=== PATIENT | male | born 1975 | race American Indian/Alaskan Native ===

== ENCOUNTER 2017-04-16 12:40 | Emergency (ER) | payer OTHER ==
--- NOTE | 2017-04-16 14:21 | Cat Scan Report ---
FINAL REPORT EXAM: CT HEAD/BRAIN WO CON HISTORY: fall down stairs,dizziness TECHNIQUE: CT head without contrast PRIORS: None. FINDINGS: No acute intra-axial or extra-axial hemorrhage is identified. There is no evidence of midline shift or mass effect. The ventricles and sulci are within normal limits. Ruiz-white matter differentiation is intact. No acute parenchymal abnormalities seen. Bony calvarium is grossly intact. Visualized portions of the mastoids and paranasal sinuses are unremarkable. IMPRESSION: Negative CT head
--- NOTE | 2017-04-16 14:36 | Cat Scan Report ---
FINAL REPORT EXAM: CT LUMBAR SPINE WO CON HISTORY: fall down stairs,dizziness TECHNIQUE: CT lumbar spine PRIORS: None. FINDINGS: Vertebral bodies demonstrate normal height and alignment. The disc spaces are within normal limits. There is no evidence of spondylolisthesis. Transverse and spinous processes are intact SI joints are unremarkable. IMPRESSION: Negative no acute abnormality identified
--- NOTE | 2017-04-16 23:58 | Emergency Department Report ---
ED Fall HPI - General Chief Complaint: Fall Stated Complaint: LEFT SIDE NUMB Time Seen by Provider: 04/16/17 23:52 Source: patient Mode of arrival: Wheelchair - History of Present Illness Initial Comments: 41-year-old male sent to the emergency room with a fall just prior to arrival. Patient states he fell down 9 steps and landed on his butt and lower back and hit his head. Patient states he has a headache and is having some dizziness at the time of the fall but now has resolved. He states that pain as a 10 out of 10 and is worse with movement and palpation. Patient also complains of left hip and left pelvis pain,. Patient states he can barely walk. Patient states the pain is radiating down his left. Patient states he is feeling numbness in that left leg as well. No loss of consciousness. No chest pain/sob. -: Gradual Fall From: standing When Fall Occurred: 1 hour PRIVATE EYE Fall Witnessed: no Place Fall Occurred: work Loss of Consciousness: none Symptoms Prior to Fall: none Location: head, back Severity: severe Severity scale (0 -10): 10 Quality: sharp Context: tripped/slipped - Related Data Previous Rx's Medication Instructions Recorded Last Taken Type Ibuprofen [Motrin] 800 mg PO Q8H #30 tablet 08/11/14 Unknown Rx Cyclobenzaprine [Flexeril 10 MG 10 mg PO TID PRN #20 tablet 04/17/17 Unknown Rx TAB] methylPREDNISolone [Medrol] 4 mg PO DAILY #1 tab.ds.pk 04/17/17 Unknown Rx traMADol [Ultram 50 MG tab] 50 mg PO Q6HR PRN #20 tablet 04/17/17 Unknown Rx Allergies Allergy/AdvReac Type Severity Reaction Status Date / Time No Known Allergies Allergy Unverified 08/11/14 20:12 ED Review of Systems ROS: Stated complaint: LEFT SIDE NUMB Other details as noted in HPI Constitutional: denies: chills, fever Eyes: denies: eye pain, eye discharge, vision change ENT: denies: ear pain, throat pain Respiratory: denies: cough, shortness of breath, wheezing Cardiovascular: denies: chest pain, palpitations Endocrine: no symptoms reported Gastrointestinal: denies: abdominal pain, nausea, diarrhea Genitourinary: denies: urgency, dysuria Musculoskeletal: back pain. denies: joint swelling, arthralgia Skin: denies: rash, lesions Neurological: headache. denies: weakness, paresthesias Psychiatric: denies: anxiety, depression Hematological/Lymphatic: denies: easy bleeding, easy bruising ED Past Medical Hx - Past Medical History Previous Medical History?: No - Surgical History Past Surgical History?: No - Family History Family history: hypertension - Social History Smoking Status: Current Every Day Smoker Substance Use Type: Alcohol - Medications Home Medications: Home Medications Medication Instructions Recorded Confirmed Last Taken Type Ibuprofen [Motrin] 800 mg PO Q8H #30 tablet 08/11/14 Unknown Rx Cyclobenzaprine [Flexeril 10 MG 10 mg PO TID PRN #20 tablet 04/17/17 Unknown Rx TAB] methylPREDNISolone [Medrol] 4 mg PO DAILY #1 tab.ds.pk 04/17/17 Unknown Rx traMADol [Ultram 50 MG tab] 50 mg PO Q6HR PRN #20 tablet 04/17/17 Unknown Rx ED Physical Exam - General Limitations: No Limitations General appearance: alert, in no apparent distress - Head Head exam: Present: atraumatic, normocephalic - Eye Eye exam: Present: normal appearance - ENT ENT exam: Present: mucous membranes moist - Neck Neck exam: Present: normal inspection - Respiratory Respiratory exam: Present: normal lung sounds bilaterally. Absent: respiratory distress - Cardiovascular Cardiovascular Exam: Present: regular rate, normal rhythm. Absent: systolic murmur, diastolic murmur, rubs, gallop - GI/Abdominal GI/Abdominal exam: Present: soft, normal bowel sounds - Rectal Rectal exam: Present: deferred - Extremities Exam Extremities exam: Present: normal inspection, full ROM, normal capillary refill - Back Exam Back exam: Present: tenderness, paraspinal tenderness (left paraspinal tenderness noted with paraspinal muscle tightness) - Neurological Exam Neurological exam: Present: alert, oriented X3, CN II-XII intact, reflexes normal - Psychiatric Psychiatric exam: Present: normal affect, normal mood - Skin Skin exam: Present: warm, dry, intact, normal color. Absent: rash ED Course Vital Signs 04/16/17 04/16/17 13:27 22:40 Temperature 98.2 F Pulse Rate 92 H 83 Respiratory 18 14 Rate Blood Pressure 128/93 Blood Pressure 120/83 [Left] O2 Sat by Pulse 99 99 Oximetry ED Medical Decision Making - Medical Decision Making CT head, L spine and pelvis all negative. He is stable for discharge. - Differential Diagnosis fall. contusion, sprain. Critical care attestation.: If time is entered above; I have spent that time in minutes in the direct care of this critically ill patient, excluding procedure time. ED Disposition Clinical Impression: Left hip pain, Lower back pain, Fall, Headache, Dizziness, Contusion Disposition: TO HOME OR SELFCARE Is pt being admited?: No Does the pt Need Aspirin: No Condition: Stable Instructions: Acute Low Back Pain (ED), Sacroiliitis (ED) Additional Instructions: Patient to see or so and primary care within 2-4 days. Patient to return to ER if condition worsens. Patient did take ibuprofen and Tylenol when necessary for pain. Patient take Rx medications as prescribed. Prescriptions: Cyclobenzaprine [Flexeril 10 MG TAB] 10 mg PO TID PRN #20 tablet PRN Reason: Muscle Spasm methylPREDNISolone [Medrol] 4 mg PO DAILY #1 tab.ds.pk traMADol [Ultram 50 MG tab] 50 mg PO Q6HR PRN #20 tablet PRN Reason: Pain Time of Disposition: 01:42
--- NOTE | 2017-04-17 01:02 | Cat Scan Report ---
FINAL REPORT EXAM: CT PELVIS WO CON HISTORY: hip, pelvis pain fell down stairs, worse pain in left hip TECHNIQUE: Routine axial imaging was obtained of the pelvis without IV contrast with images reviewed on bone and soft tissue window settings. Reconstructed coronal and sagittal images were reviewed also. FINDINGS: There is no evidence of a pelvic fracture. In particular, the hip joint space appears normal. Joint fluid is not seen. The bony pelvic ring appears intact. The SI joints appear normal also. The soft tissues in the pelvis reveal a normal-appearing bladder and prostate gland. There are phleboliths along the floor pelvis. The bowel loops appear normal. The appendix appears normal. IMPRESSION: Normal exam. No evidence of acute fracture involving the left hip or bony pelvic ring.
[2017-04-17] MEDS ORDERED: DILAUDID ONE (02:01)
[2017-04-17] MEDS ORDERED: DILAUDID IM ONE (02:02)
[2017-04-17 03:31] VITALS: BP 118/72
== END 2017-04-17 03:32 | disposition home or self-care (01) ==
LOC: ED 12:40
DX: M54.5 Low back pain (principal); M25.552 Pain in left hip; R42 Dizziness and giddiness; R51 Headache; F17.200 Nicotine dependence, unspecified, uncomplicated; W10.8XXA Fall (on) (from) other stairs and steps, initial encounter; Y93.89 Activity, other specified; Y92.89 Other specified places as the place of occurrence of the external cause; Y99.8 Other external cause status
CPT/HCPCS: 70450; 72131; 72192; 96372; 99283; J1170; J2930

== ENCOUNTER 2019-10-04 12:36 | Emergency (ER) | payer SELFPAY ==
[2019-10-04 13:29] LABS: Basophils % (Auto) 0.6 % (0.0-1.8); Eosinophils # (Auto) 0.2 K/mm3 (0.0-0.4); Eosinophils % (Auto) 2.7 % (0.0-4.3); Hematocrit 43.9 % (35.5-45.6); Hemoglobin 14.6 gm/dl (11.8-15.2); Lymphocytes # (Auto) 1.9 K/mm3 (1.2-5.4); Lymphocytes % (Auto) 27.8 % (13.4-35.0); Mean Corpuscular HGB Conc 33 % (32-34); Mean Corpuscular Volume 95 fl (84-94); Monocytes # (Auto) 0.5 K/mm3 (0.0-0.8); Monocytes % (Auto) 7.8 % (0.0-7.3); Platelet Count 179 K/mm3 (140-440); Red Blood Count 4.63 M/mm3 (3.65-5.03); Red Cell Distribution Width 13.3 % (13.2-15.2)
[2019-10-04 13:47] LABS: BUN/Creatinine Ratio 12; Blood Urea Nitrogen 11 mg/dL (9-20); Calcium 9.4 mg/dL (8.4-10.2); Hemolysis Index 12
--- NOTE | 2019-10-04 14:25 | Emergency Department Report ---
HPI - General Chief Complaint: GI Bleed Time Seen by Provider: 10/04/19 13:27 - HPI HPI: This is a 43-year-old -[place] male presents to the emergency department with 2 complaints. First, the patient has been having some blood in his stool over the past week. It is mostly bright red blood and occasionally is slightly darker but he denies any melanotic appearing stool. He has some rectal pain when he has the bowel movements. He denies that his stool is excessively hard or large in volume. Secondly, the patient complains of some generalized chest discomfort that appears to be intermittent and sharp and cramping in nature. There are no known aggravating or alleviating factors. He has tried some [id number] Tylenol and ibuprofen for his symptoms without any relief. He denies any shortness of breath, fever, nausea, vomiting or diaphoresis. No recent travel or sick contacts at home. He is a tobacco smoker. There is no early cardiac disease or events within his nuclear family but he does have an uncle that had a very early heart attack in his late 30s. ED Past Medical Hx - Past Medical History Previous Medical History?: No - Surgical History Past Surgical History?: Yes Additional Surgical History: hernia - Social History Smoking Status: Current Every Day Smoker Substance Use Type: Alcohol - Medications Home Medications: Home Medications Medication Instructions Recorded Confirmed Last Taken Type Ibuprofen [Motrin] 800 mg PO Q8H #30 tablet 08/11/14 Unknown Rx Cyclobenzaprine [Flexeril 10 MG 10 mg PO TID PRN #20 tablet 04/17/17 Unknown Rx TAB] methylPREDNISolone [Medrol] 4 mg PO DAILY #1 tab.ds.pk 04/17/17 Unknown Rx traMADoL [Ultram 50 MG tab] 50 mg PO Q6HR PRN #20 tablet 04/17/17 Unknown Rx Hydrocort/Pramoxine [Proctofoam-Hc] 10 gm [place] TID PRN #1 can 10/04/19 Unknown Rx ED Review of Systems ROS: Stated complaint: CP/NUMBNESS IN BOTH ARMS/BLOOD IN STOOL Other details as noted in HPI Comment: All other systems reviewed and negative Constitutional: denies: chills, fever Eyes: denies: eye pain, vision change ENT: denies: ear pain, throat pain Respiratory: denies: cough, shortness of breath Cardiovascular: chest pain. denies: palpitations Gastrointestinal: hematochezia. denies: vomiting Genitourinary: denies: dysuria, discharge Musculoskeletal: denies: back pain, arthralgia Skin: denies: rash Neurological: denies: headache, weakness Physical Exam - Physical Exam Vital Signs: Vital Signs 10/04/19 12:43 Temperature 98.4 F Pulse Rate 84 Respiratory 20 Rate Blood Pressure 122/80 O2 Sat by Pulse 100 Oximetry Physical Exam: GENERAL: The patient is well-developed well-nourished. HENT: Normocephalic. Atraumatic. Patient has moist mucous membranes. EYES: Extraocular motions are intact. NECK: Supple. Trachea is midline. CHEST/LUNGS: Clear to auscultation. There is no respiratory distress noted. HEART/CARDIOVASCULAR: Regular. There is no tachycardia. There is no murmur. ABDOMEN: Abdomen is soft, nontender. Patient has normal bowel sounds. There is no abdominal distention. SKIN: Skin is warm and dry. NEURO: The patient is awake, alert, and oriented. The patient is cooperative. The patient has no focal neurologic deficits. Normal speech. MUSCULOSKELETAL: There is no tenderness or deformity. There is no limitation range of motion. There is no evidence of acute injury. RECTAL: There is a nonthrombosed hemorrhoid at the 3 o'clock position. There was no stool for guaiac testing. No gross bleeding. ED Course Vital Signs 10/04/19 12:43 Temperature 98.4 F Pulse Rate 84 Respiratory 20 Rate Blood Pressure 122/80 O2 Sat by Pulse 100 Oximetry ED Medical Decision Making - Lab Data Result diagrams: 10/04/19 12:46 10/04/19 12:46 - EKG Data -: EKG Interpreted by Me EKG shows normal: sinus rhythm, axis, intervals, QRS complexes (Early repolarization), ST-T waves Rate: normal - EKG Data When compared to previous EKG there are: previous EKG unavailable Interpretation: normal EKG - Radiology Data Radiology results: image reviewed interpreted by me: Chest x-ray does not show any acute process. There are no pleural effusions, obvious pneumonia and there is no pneumothorax. Abdominal x-ray shows nonspecific nonobstructive bowel gas. - Medical Decision Making Regarding the patient's rectal bleeding, the patient has a nonthrombosed hemorrhoid at the 3 o'clock position. On rectal exam there was no stool for guaiac testing but there was no gross blood seen. It is possible that the patient's rectal bleeding could be from the hemorrhoids, but the patient will follow-up with gastroenterology outpatient and may need a colonoscopy in the near future. He will return to the emergency department with any increased bleeding, increased pain. He has been given a prescription for Anusol HC. Regarding the patient's chest pain, he appears low risk for coronary artery disease. He is a tobacco smoker and there is a history of early heart attack in his uncle, but nothing within the nuclear family. EKG was normal without ST elevation [place] or dysrhythmia. He had a negative troponin. He has a low heart and ORACIO score. As part of our low risk chest pain protocol, the patient's information has been sent to the [facility] and [facility] [place] for close outpatient follow-up. Critical care attestation.: If time is entered above; I have spent that time in minutes in the direct care of this critically ill patient, excluding procedure time. ED Disposition Clinical Impression: Intermittent chest pain, Rectal bleeding, Hemorrhoid Disposition: - TO HOME OR SELFCARE Is pt being admited?: No Condition: Stable Instructions: Chest Pain (ED), Hemorrhoids (ED), Rectal Bleeding (ED) Additional Instructions: Please follow-up with a primary care physician in the next few days. I am sending your contact information to [facility] and [facility] [place] and someone from their office should be contacting you shortly for close outpatient follow- up regarding your intermittent chest pains. I am giving you a referral for a local project engineering manager, Dr. Diony Ceja, who is part of a larger group c [facility] gastroenterology. Please follow-up with a project engineering manager regarding your hemorrhoid and rectal bleeding. You may need a colonoscopy in the near future. Return to the emergency department with any worsening of your symptoms or any acute distress. Prescriptions: Hydrocort/Pramoxine [Proctofoam-Hc] 10 gm [place] TID PRN #1 can PRN Reason: Hemorrhoids Referrals: KOLBY CEJA MD [Staff Physician] - 2-3 Days ARUNA BLEDSOE MD [Staff Physician] - 2-3 Days Forms: Accompanied Note Time of Disposition: 15:19 HEART Score - HEART Score History: Slightly suspicious EKG: Normal Age: < 45 Risk factors: 1-2 risk factors Troponin: Troponin T < 0.010 ng/mL (0.00-0.029) 10/04/19 14:31 Troponin: < normal limit HEART Score: 1 - Critical Actions Critical Actions: 0-3 pts:0.9-1.7%risk of adverse cardiac event.Candidate for discharge ORACIO score - Oracio Score Age > 65: (0) No Aspirin use within the Past 7 Days: (0) No 3 or more CAD Risk Factors: (0) No 2 or more Angina events in past 24 hrs: (1) Yes (If his pain is considered angina) Known CAD with more than 50% Stenosis: (0) No Elevated Cardiac Markers: (0) No ST Deviation Greater than 0.5mm: (0) No ORACIO Score: 1
--- NOTE | 2019-10-04 14:43 | XRay Report ---
ABDOMEN 3 VIEW(S) INDICATION / CLINICAL INFORMATION: abd pain, chest pain. COMPARISON: None available. FINDINGS: TUBES / LINES: None. BOWEL GAS PATTERN: No significant abnormality. FREE AIR / EXTRALUMINAL GAS: None seen. ADDITIONAL FINDINGS: No significant additional findings. IMPRESSION: 1. No significant abnormality. Signer Name: Jovan Scott MD Signed: 10/04/2019 2:39 PM Workstation Name: [id number]
[2019-10-04 15:03] LABS: INR 0.97 (0.87-1.13)
[2019-10-04 15:06] LABS: Alanine Aminotransferase 13 units/L (7-56); Albumin 4.6 g/dL (3.9-5)
[2019-10-04 15:12] LABS: Bilirubin,Direct < 0.2 mg/dL (0-0.2)
[2019-10-04 16:16] VITALS: BP 121/73
== END 2019-10-04 15:35 | disposition home or self-care (01) ==
LOC: ED 12:36
DX: K64.8 Other hemorrhoids (principal); F17.200 Nicotine dependence, unspecified, uncomplicated
CPT/HCPCS: 36415; 74022; 80048; 80076; 84484; 85025; 85610; 93005

== ENCOUNTER 2022-01-27 09:39 | Emergency (ER) | payer SELFPAY ==
[2022-01-27 09:49] VITALS: BP 158/91
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
--- NOTE | 2022-01-27 12:35 | XRay Report ---
RIBS-4 views INDICATION: Left rib pain, shortness of breath, his of rib fx. COMPARISON: None available. IMPRESSION: No acute osseous abnormality. Normal alignment. Clear lungs. Normal heart size. Signer Name: Rohan You MD Signed: 01/27/2022 12:31 PM Workstation Name: [id number]
== END 2022-01-27 17:29 | disposition home or self-care (01) ==
LOC: ED 09:39
DX: R07.81 Pleurodynia (principal); M25.562 Pain in left knee; F17.200 Nicotine dependence, unspecified, uncomplicated; F10.20 Alcohol dependence, uncomplicated
CPT/HCPCS: 99283